=== PATIENT | male | born 2000 | race Caucasian/White ===

== ENCOUNTER → 2019-05-08 13:07 | Outpatient (CLI) | payer OTHER, SELFPAY ==
--- NOTE | 2019-05-08 | DI.RAD.S_ITS ---
PROCEDURE: XR FINGER LT MIN 2V INDICATIONS: L thumb trauma TECHNIQUE: AP hand, 2 views of the left finger(s) acquired. COMPARISON: None. FINDINGS: Bones: Impacted fracture of the thumb proximal phalanx is seen, with dorsal and ulnar deviation of the distal fracture fragment. No definite intra-articular extension is seen. Scattered punctate densities present, including between the thumb and index finger raising the possibility of small foreign bodies versus superficial debris. Soft tissues: No suspicious soft tissue calcifications. IMPRESSION: Impacted fracture of the proximal phalanx of the thumb as above Soft tissue swelling. Punctate densities which may be on the skin surface although recommend clinical correlation to exclude foreign body. Dictated by: Brijesh Erwin M.D. on 05/08/2019 at 15:59 Approved by: Brijesh Erwin M.D. on 05/08/2019 at 16:02
== END ==
PROVIDERS: Visit Provider Family Medicine
DX: S62.512A Displaced fracture of proximal phalanx of left thumb, initial encounter for closed fracture (principal); X58.XXXA Exposure to other specified factors, initial encounter
CPT/HCPCS: 73140

== ENCOUNTER 2019-05-10 11:00 | Day surgery (SDC) | payer OTHER, SELFPAY ==
[2019-05-10] VITALS (8 sets, daily range): BP systolic 105–128; BP diastolic 48–78; PULSE 60–92; RESP 9–26; TEMP 36.2–36.7; O2SAT 97–100; BMI 22.7
[2019-05-10] MEDS: LACTATED RINGERS 1,000 ML 42 ML IV ×2 (11:39→13:51)
--- NOTE | 2019-05-10 12:33 | PM.HP.1 ---
History of Present Illness History of Present Illness Date Patient Seen: 05/10/19 Time Patient Seen: 12:33 Chief complaint: [id number] Narrative: 18-year-old gentleman who had a work related injury little over 2 weeks ago. Patient had a heavy sheet of metal land on his hand crushing his left thumb. Patient initially had quite a bit of pain and discomfort. But initially did not realize the thumb was fractured. After it continued to cause him problems he eventually went in and sought medical treatment. X-rays were obtained about 2 weeks after the injury showing a proximal phalanx fracture of the left thumb. Patient History Medical History Fracture of left upper extremity (Acute) Family & Social History Social History: household members family Tobacco & Substance use: Tobacco type smokeless tobacco Smoking Status Current some day smoker alcohol intake current alcohol intake frequency holiday/special occasion Substance Use Type does not use Meds Home Medications and Allergies Home Medications Medication Instructions Recorded Confirmed Type No Known Home Medications 05/10/19 05/10/19 History Allergies Allergy/AdvReac Type Severity Reaction Status Date / Time No Known Drug Allergies Allergy Verified 05/10/19 11:23 Review of Systems Review of Systems ROS Unobtainable: All systems reviewed & are unremarkable except as noted in HPI and below Exam Vital Signs (past 8 hours): - 05/10/19 11:29 Temperature 98.0 F Pulse Rate 70 Respiratory Rate 15 Blood Pressure 124/58 L Pulse Oximetry 100 Oxygen Delivery Method Room Air Narrative Exam Narrative: Some swelling to the thumb but no significant bruising. No sign of any fracture blistering. Patient's skin is intact. Is able to flex and extend the thumb but with pain. Patient is nontender to palpation to the rest of the hand. Flexion extensor mechanisms are intact, symmetric, and stable. Ulnar, median, and radial nerve intact to both motor and sensory function. Assessment & Plan Assessment & Plan narrative: 18-year-old gentleman with a subacute left thumb fracture. I went over treatment options with the patient today. We discussed operative versus non operative treatment and the risks and limitations associated with both. Patient is interested in surgical treatment. Will plan on doing a open reduction internal fixation of the left thumb proximal phalanx. Time Spent With Patient Time with patient: 15-24 minutes
--- NOTE | 2019-05-10 12:36 | PM.PREOP ---
Pre-operative Note Interval Note History & Physical reviewed/Exam performed by Physician: Yes Changes to H&P: No
--- NOTE | 2019-05-10 13:01 | PM.OP.1 ---
Operative Date/Time/Diagnoses Date of procedure: 05/10/19 Time of procedure: 11:00 Pre-op diagnosis: Massive left rotator cuff tear Post-op diagnosis: same Procedure & Clinicians Procedure: Arthroscopic rotator cuff repair Same procedure as scheduled: Yes Indications: Massive left rotator cuff tear Surgeon: Paulino Diaz Television Anchor: Ana Hou Anesthesia Type: General and Peripheral nerve block Operative Notes Findings: Complete tear of supraspinatus and infraspinatus. Retraction back to the glenoid rim. Previous suture material in the rotator cuff from previous repair. Pretty much the entire humeral head was exposed. Arthritic changes in the glenohumeral joint but no sign of any full-thickness cartilage loss. Closure Type: primary Specimen(s): none sent Applied: implant(s) Estimated Blood Loss (mL): 5 Blood products transfused: none Procedure in detail: On date of service, Patient was met in the holding area. The operative site was signed and witnessed by the OR staff. The surgeries once again discussed with the patient and any remaining questions they had were answered fully. Patient was taken back to the operating theater and placed on the operating table in a supine position. Great care was taken to ensure that all bony prominences were properly padded. Patient was then placed into the beach chair position. The head and neck were properly positioned and secured. A timeout was performed verifying patient's name, procedure, and the operative site. The upper extremity was then prepped and draped in the normal sterile fashion. Previously, the bony anatomy and portal sites were marked out as well as injected with Marcaine with epinephrine. An 11 blade was used to make an incision in the posterior aspect of the shoulder. The camera was placed, and a diagnostic shoulder scope was performed. Findings listed above. Next under direct visualization, a anterior portal was made. Shaver was brought in and extensive debridement of the degenerative changes to the labrum was performed. Next the camera was placed into the subacromial space. A lateral portal was obtained under direct visualization. A combination of the shaver and vapor wand, a debridement of the inflamed tissue as well as inflamed bursa was performed. The lateral gutter was also cleaned out. There was a significant amount of bursitis and synovitis in both the subacromial and subdeltoid space. After this was all cleaned out, This gave us good visualization of the bursal aspect of the rotator cuff as well as the acromial arch. We then turned our attention to the rotator cuff tear. Patient had a very large tear involving the rotator cuff. The entire supraspinatus and infraspinatus was torn from the greater tuberosity and retracted due to the chronic nature of the tear there was quite a bit of scarring. Combination of the shaver and liberator was used to free up the rotator cuff both bursal and articular surface. This helped improve the overall excursion and we could get the cuff to just beyond the rim of the articular surface. Using the bur, the rotator cuff footprint was decorticated down to bleeding bone. Next, 2 medial anchors were placed. One anteriorly 1 posteriorly. Each anchor had 2 strands of fiber tape for a speed bridge repair. The sutures from the posterior anchor were passed through the posterior aspect of the infraspinatus. Then the sutures from the anterior anchor was passed through the anterior aspect of the supraspinatus. When pulling on the sutures we were able to reduce both the supraspinatus and infraspinatus to their respective footprints. Next, a punch was used to make a hole in the bone for the 2 medial anchors. This was done also anteriorly and posteriorly. A single suture from the anterior medial anchor and a single suture from the posterior medial anchor were placed into the anterior lateral anchor allowing us to tenodesis the rotator cuff across the rotator cuff footprint for the supraspinatus. This was then repeated with the remaining suture both anteriorly and posteriorly. And these 2 sutures were placed into the posterior medial anchor and tenodesis posteriorly providing a crisscross pattern providing a secure repair of both the supraspinatus and infraspinatus. Before the row repair most of the humeral head was exposed. After the repair there was good coverage of the entire humeral head and a very secure repair of the rotator cuff. Shoulder was taken through range of motion and there was no sign of any other tearing. No sign of any impingement lesions. Camera and cannulas were removed. Portal sites were closed. Patient's shoulder was cleaned, dried, and dressed. Patient was extubated and taken to the PACU in stable condition. Complications: none Post-operative Condition: stable Disposition: PACU Plan for aftercare: Patient will follow our postoperative protocol for rotator cuff repair
[2019-05-10] MEDS: CEFAZOLIN 2 GM/100 ML FROZ.PIGGY IV (13:06)
--- NOTE | 2019-05-10 13:29 | SUR.OPER ---
Supine on padded OR bed, head on pillow, right arm secured on padded arm boards at <90 degrees abduction, left arm on arm table under control of surgeon, legs uncrossed, safety belt at thigh, tape over blanket over lower legs.
[2019-05-10] MEDS: BUPIVACAINE 0.5% W/ EPI (PF) 10 ML VIAL 20 ML INJ (13:38)
--- NOTE | 2019-05-10 14:33 | PM.OP.1 ---
Operative Date/Time/Diagnoses Date of procedure: 05/10/19 Time of procedure: 13:00 Pre-op diagnosis: Left thumb fracture Post-op diagnosis: same Procedure & Clinicians Procedure: Open reduction internal fixation of a left proximal phalanx thumb Same procedure as scheduled: Yes Indications: Displaced proximal phalanx fracture left thumb Surgeon: Paulino Diaz Click Yes if Unassisted: Yes Anesthesia Type: General Operative Notes Findings: Subacute displaced proximal phalanx fracture Closure Type: primary Specimen(s): none sent Applied: implant(s) Estimated Blood Loss (mL): 2 Blood products transfused: none Tourniquet time (min): 56 Procedure in detail: On date of service, patient was met in the holding area where his operative site was signed and witnessed by the OR staff. The surgery was once again discussed with the patient and any remaining questions or concerns he had were answered fully. Patient was taken back to the operating theater and placed on the operating table in a supine position. Great care was taken to ensure that all bony prominences were appropriately padded. Well-padded tourniquet was placed up along the upper extremity. Time-out was performed verifying patient's name, procedure, and operative site. Left arm was prepped and draped in the normal sterile fashion. Esmarch was used to exsanguinate the limb and the tourniquet was turned up to 250 mm of mercury. Dorsal incision was made along the course of the proximal phalanx. Fifteen blade was used to incise through skin and fascial tissue. Bipolar electrocautery was used to achieve hemostasis. Sharp dissection was continued with the deep knife until we had good visualization of the extensor tendon to. Sensor tendon was split down the middle given his good visualization of the periosteal tissue over the proximal phalanx. The periosteal tissue was then split down the middle as well and then sharply dissected from the proximal phalanx. Due to the subacute nature of the fracture, patient already had some soft callus formation in this was debrided with a rongeur and curette. This was followed by copious irrigation. Once the fracture edges were debrided and cleaned the proximal phalanx was reduced and held provisionally with a K-wire. C-arm was brought in to verify overall reduction. Once we were satisfied with the reduction a T-plate was placed and held with a 2 point reduction forceps. C-arm was brought in again to verify maintenance of reduction as well as plate positioning. Next the plate was secured both distal and proximal to the fracture with a combination of nonlocking and locking screws. This provided a secure fixation of the proximal phalanx fracture. Final x-rays were obtained. The wound was then copiously irrigated. Periosteal tissue was repaired over the plate with 4 0 Ethibond. The split in the extensor tendon was repaired with 4 0 Ethibond. The extensor tendon was not in contact with the plate there was tissue between the plate and the attendant. Rest of the wound was closed in layered fashion patient was placed into a splint extubated and taken to the PACU in stable condition. Complications: none Post-operative Condition: stable Disposition: PACU Plan for aftercare: No restrictions to range of motion. We will limit lifting to 2-3 lb for the next 6 weeks. Patient will go into a removable brace next week and at that point can engage in range of motion exercises of the wrist as well as thumb.
[2019-05-10] MEDS: OXYCODONE/ACETAMINOPHEN 5/325 TABLET 1 TAB PO (14:46)
== END 2019-05-10 15:28 | disposition home or self-care (01) ==
PROVIDERS: Visit Provider Orthopaedic Surgery
PROC: (CPT 26735; principal; 2019-05-10 13:15)
DX: S62.512A Displaced fracture of proximal phalanx of left thumb, initial encounter for closed fracture (principal); W23.0XXA Caught, crushed, jammed, or pinched between moving objects, initial encounter
CPT/HCPCS: 26735; J0690; J1100; J2405; J2704; J3010

== ENCOUNTER 2020-11-20 20:16 | Emergency (ER) | payer OTHER, BC, SELFPAY ==
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
[2020-11-20 20:24] VITALS: BP 141/74; PULSE 84; RESP 17; TEMP 37; O2SAT 99; BMI 22.4
[2020-11-20] MEDS: TET,DIPH,PERTUSS(ACELL),VAC/PF 0.5 ML SYRINGE IM (20:39)
[2020-11-20] MEDS: BUPIVACAINE 0.25% (PF) VIAL 5 ML SUBCUT (20:39)
[2020-11-20 21:35] VITALS: BP 132/61; PULSE 73; RESP 14; O2SAT 99
== END 2020-11-20 21:36 | disposition home or self-care (01) ==
PROVIDERS: Emergency Provider Emergency Medicine
DX: S81.812A Laceration without foreign body, left lower leg, initial encounter (principal); W26.8XXA Contact with other sharp object(s), not elsewhere classified, initial encounter; Z23 Encounter for immunization
CPT/HCPCS: 12004; 90471; 99283; 90715

== ENCOUNTER → 2021-01-14 12:16 | Outpatient (ROUT) | payer OTHER, BC, SELFPAY ==
[2021-01-14 12:50] LABS: COVID19 -Nasal RAPID POSITIVE (Negative)
== END ==
PROVIDERS: Visit Provider Family Medicine
DX: U07.1 COVID-19 (principal)
CPT/HCPCS: 87635